=== PATIENT | male | born 1975 | race Caucasian/White ===

== ENCOUNTER 2021-11-24 11:15 | Emergency (ER) | payer SELFPAY ==
[~2021-11-24] VITALS: Ht 177.8 cm; Wt 101.6 kg
[2021-11-24] MEDS ORDERED: ONDANSETRON HCL INJ 2MG/ML 2ML 2 MG/ML VIAL IV STA (12:51)
[2021-11-24] MEDS ORDERED: KETOROLAC TROMETHAMINE 30 MG/ML VIAL IV STA (12:51)
[2021-11-24] MEDS ORDERED: SODIUM CHLORIDE 0.9% 1000ML 1,000 ML IV ONE (13:00)
[2021-11-24] MEDS ORDERED: KETOROLAC TROMETHAMINE 30 MG/ML VIAL ONE (13:08)
[2021-11-24] MEDS ORDERED: ONDANSETRON HCL INJ 2MG/ML 2ML 2 MG/ML VIAL ONE (13:08)
[2021-11-24] MEDS ORDERED: IOPAMIDOL 370 MG/ML 100 ML INFUS..BTL INJ ONE (13:28)
[2021-11-24] MEDS ORDERED: PREDNISONE50 MG PO ×2 (16:14→16:28)
[2021-11-24] MEDS ORDERED: PREDNISONE 20 MG TAB PO ONE (16:15)
[2021-11-24] MEDS ORDERED: CYCLOBENZAPRINE10 MG PO ×2 (16:15→16:28)
[2021-11-24 16:17] VITALS: BP 129/90
[2021-11-24] MEDS ORDERED: PREDNISONE 20 MG TAB ONE (16:25)
== END 2021-11-24 16:21 | disposition home or self-care (01) ==
LOC: FSED 11:37
DX: M54.50 Low back pain, unspecified (principal); N20.0 Calculus of kidney; R10.9 Unspecified abdominal pain; K21.9 Gastro-esophageal reflux disease without esophagitis; Z87.09 Personal history of other diseases of the respiratory system
CPT/HCPCS: 74177; 80048; 80076; 81003; 85025; 96374; 96376; 99284; J1885; J2405; J7512; Q9967